=== PATIENT | female | born 1960 | race African-American/Black ===

== ENCOUNTER 2023-01-14 07:39 | Observation (INO) ==
[2023-01-14] MEDS ORDERED: FUROSEMIDE 40 MG/4 ML VIAL IV STA (08:02)
[2023-01-14 08:06] LABS: Basophils % 0.3 % (0.0-0.8); Eosinophils # 0.1 10*3/uL (0.0-0.87); Eosinophils % 1.2 % (0.00-10.9); Hematocrit 26.4 VOL% (35.7-47.0); Immature Granulocytes % 1.8 %; Immature Granulocytes Absolute 0.13 #; Lymphocytes # 2.7 10*3/uL (1.4-4.0); Lymphocytes % 36.8 % (21.3-54.2); Mean Corpuscular HGB Conc 27.3 GM/DL (32-36); Monocytes # 0.8 10*3/uL (0.11-0.8); Monocytes % 10.6 % (1.7-12.7); NRBC # 0.25 10*3/uL; Neutrophils % 49.3 % (38.7-73.9); Platelet Count 226 T/CUMM (130-400); Red Blood Count 3.18 MC/CUMM (3.8-5.5); Red Cell Distribution Width 27.9 % (9.3-17.3); White Blood Count 7.36 T/CUMM (4-12)
[2023-01-14 08:07] LABS: Hemoglobin 7.2 GM/DL (12.0-16.0)
[2023-01-14 08:23] LABS: Albumin 3.2 G/DL (3.4-5.0); Bilirubin,Total 0.4 MG/DL (0.20-1.00); Calcium 8.4 MG/DL (8.5-10.1); Hypochromia 1+; Osmolality,Calculated 283.1 MOS/KG (273-304); Potassium 4.1 MMOL/L (3.5-5.1); Total Protein 7.1 G/DL (6.4-8.2)
[2023-01-14 08:24] LABS: Microcytosis 1+; Ovalocytes Slight; Platelet Estimate Normal; Polychromasia Slight; Target Cells Slight
[2023-01-14 10:10] LABS: Barbiturates Screen,Urine Negative (Negative); Benzodiazepines Screen,Urine Negative (Negative); Cannabinoid Screen,Urine Negative (Negative); Opiate Screen,Urine Negative (Negative); Phencyclidine Screen,Urine Negative (Negative)
[2023-01-14 10:27] LABS: Folate 13.88 NG/ML (5.38-24.0)
[2023-01-14 10:39] LABS: % Iron Saturation 9.4 % (18-50); Ferritin 22.7 ng/mL (8-252)
[2023-01-14] MEDS ORDERED: ONDANSETRON 4 MG/2 ML VIAL IV PRN (12:34)
[2023-01-14] MEDS ORDERED: MORPHINE 2 MG/1 ML SYRINGE IV PRN (12:34)
[2023-01-14] MEDS ORDERED: GABAPENTIN 300 MG CAPSULE PO PRN (13:01)
[2023-01-14] MEDS ORDERED: LORazepam 2 MG/1 ML VIAL IV PRN (13:20)
[2023-01-14] MEDS ORDERED: INFLUENZA VIRUS VACCINE 0.5 ML SYRINGE IM ONE (13:31)
[2023-01-14] MEDS: ENOXAPARIN 40 MG/0.4 ML SYRINGE SUBCUT SCH (13:37)
[2023-01-14] MEDS: ALBUTEROL/IPRATROPIUM 3 ML NEB RESP TX SCH ×2 (14:16→19:45)
[2023-01-14 14:35] LABS: Hepatitis B Core IgM Quant 0.21 Index; Hepatitis B Surface Ag Quant < 0.10 Index; Hepatitis B Surface Ag Result Non-Reactive (NonReactive); Hepatitis C Virus Ab Quant > 11.00 Index; Hepatitis C Virus Ab Result Reactive (NonReactive)
[2023-01-14 14:44] LABS: Thyroid Stimulating Hormone 1.79 uIU/ml (0.358-3.74)
[2023-01-14] MEDS ORDERED: amLODIPine 5 MG TABLET PO ONE (16:35)
[2023-01-14] MEDS ORDERED: LOSARTAN 50 MG TABLET PO ONE (16:36)
[2023-01-14] MEDS: SUCRALFATE 1 GM TABLET PO SCH ×2 (17:08→22:32)
[2023-01-14] MEDS: carvediloL 6.25 MG TABLET PO SCH (22:32)
[2023-01-14] MEDS: FERROUS SULFATE 325 MG TABLET PO SCH (22:33)
[2023-01-14] MEDS: AMITRIPTYLINE 50 MG TABLET PO SCH (22:33)
[2023-01-14] MEDS: QUEtiapine 100 MG TABLET PO SCH (22:33)
[2023-01-15] MEDS: ALBUTEROL/IPRATROPIUM 3 ML NEB RESP TX SCH ×4 (01:12→19:30)
[2023-01-15 05:48] LABS: Bilirubin,Total 0.4 MG/DL (0.20-1.00); Calcium 7.9 MG/DL (8.5-10.1); Osmolality,Calculated 279.3 MOS/KG (273-304); Potassium 3.7 MMOL/L (3.5-5.1); Total Protein 6.8 G/DL (6.4-8.2)
[2023-01-15 05:49] LABS: Risk Ratio 2.49; VLDL Cholesterol 14.2 MG/DL
[2023-01-15 05:51] LABS: Basophils % 0.3 % (0.0-0.8); Eosinophils # 0.2 10*3/uL (0.0-0.87); Eosinophils % 2.7 % (0.00-10.9); Hemoglobin 7.3 GM/DL (12.0-16.0); Immature Granulocytes % 0.8 %; Immature Granulocytes Absolute 0.05 #; Lymphocytes # 2.9 10*3/uL (1.4-4.0); Lymphocytes % 49.6 % (21.3-54.2); Mean Corpuscular Volume 82.3 FL (87-102); Mean Platelet Volume 9.7 FL (9.6-12.0); Monocytes # 0.6 10*3/uL (0.11-0.8); Monocytes % 10.5 % (1.7-12.7); NRBC # 0.09 10*3/uL; Neutrophils % 36.1 % (38.7-73.9); Platelet Count 226 T/CUMM (130-400); Red Blood Count 3.17 MC/CUMM (3.8-5.5); Red Cell Distribution Width 27.9 % (9.3-17.3); White Blood Count 5.93 T/CUMM (4-12)
[2023-01-15 05:52] LABS: Hematocrit 26.1 VOL% (35.7-47.0)
[2023-01-15 05:56] LABS: Eosinophils 5 % (0-10); Hypochromia Slight; Lymphocytes 42 % (20-55); Microcytosis Slight; Nucleated Red Blood Cells 1 /100 WBC (0-5); Platelet Estimate Adequate; Total Cells Counted 100
[2023-01-15] MEDS ORDERED: FUROSEMIDE 40 MG/4 ML VIAL IV SCH (09:00)
[2023-01-15] MEDS: ESCITALOPRAM 10 MG TABLET PO SCH (09:02)
[2023-01-15] MEDS: SUCRALFATE 1 GM TABLET PO SCH ×4 (09:02→21:30)
[2023-01-15] MEDS: LOSARTAN 50 MG TABLET PO SCH (09:02)
[2023-01-15] MEDS: amLODIPine 5 MG TABLET PO SCH (09:03)
[2023-01-15] MEDS: carvediloL 6.25 MG TABLET PO SCH ×2 (09:03→21:30)
[2023-01-15] MEDS: FERROUS SULFATE 325 MG TABLET PO SCH ×2 (09:03→23:31)
[2023-01-15] MEDS: ZINC SULFATE 220 MG CAPSULE PO SCH (09:03)
[2023-01-15] MEDS: FUROSEMIDE 40 MG/4 ML VIAL IV SCH (09:04)
[2023-01-15] MEDS: CHOLECALCIFEROL 1,000 UNIT TABLET PO SCH (09:04)
[2023-01-15] MEDS: PANTOPRAZOLE 40 MG TABLET PO SCH (09:05)
[2023-01-15] MEDS: ENOXAPARIN 40 MG/0.4 ML SYRINGE SUBCUT SCH (13:06)
[2023-01-15] MEDS: AMITRIPTYLINE 50 MG TABLET PO SCH (21:30)
[2023-01-15] MEDS: QUEtiapine 100 MG TABLET PO SCH (21:34)
[2023-01-15] MEDS ORDERED: hydrALAZINE 20 MG/1 ML VIAL IV PRN (22:45)
[2023-01-15] MEDS: NON-FORMULARY MEDICATION (Buprenorphine-Naloxone [Suboxone] 8-2 mg film) SL SCH (23:30)
[2023-01-16] MEDS: ALBUTEROL/IPRATROPIUM 3 ML NEB RESP TX SCH ×2 (01:45→08:05)
[2023-01-16] MEDS: NON-FORMULARY MEDICATION (Buprenorphine-Naloxone [Suboxone] 8-2 mg film) SL SCH (08:13)
[2023-01-16] MEDS: LOSARTAN 50 MG TABLET PO SCH (09:16)
[2023-01-16] MEDS: SUCRALFATE 1 GM TABLET PO SCH ×2 (09:16→14:52)
[2023-01-16] MEDS: ZINC SULFATE 220 MG CAPSULE PO SCH (09:16)
[2023-01-16] MEDS: PANTOPRAZOLE 40 MG TABLET PO SCH (09:16)
[2023-01-16] MEDS: CHOLECALCIFEROL 1,000 UNIT TABLET PO SCH (09:16)
[2023-01-16] MEDS: carvediloL 6.25 MG TABLET PO SCH (09:17)
[2023-01-16] MEDS: ESCITALOPRAM 10 MG TABLET PO SCH (09:17)
[2023-01-16] MEDS: FERROUS SULFATE 325 MG TABLET PO SCH (09:17)
[2023-01-16] MEDS: amLODIPine 5 MG TABLET PO SCH (09:17)
[2023-01-16] MEDS: FUROSEMIDE 40 MG/4 ML VIAL IV SCH (09:17)
[2023-01-16] MEDS ORDERED: ACETAMINOPHEN 325 MG TABLET PO PRN (10:08)
[2023-01-16 11:50] VITALS: BP 105/85
[2023-01-16] MEDS: ENOXAPARIN 40 MG/0.4 ML SYRINGE SUBCUT SCH (14:52)
== END 2023-01-16 13:01 | disposition home or self-care (01) ==
LOC: N.ED 07:39 → N.2W 07:39 → SUATTDRO 12:34 → N.2W 14:03
PROVIDERS: ADMIT Family Medicine; ATTEND Internal Medicine